=== PATIENT | male | born 1970 | race Caucasian/White ===

== ENCOUNTER 2020-08-20 14:45 | Emergency (ER) | payer OTHER, SELFPAY ==
--- NOTE | ~2020-08-20 | XR_ITS ---
XR finger 4th RT min 2V 08/20/2020 15:42 Indication: Right fourth finger swelling and pain Procedure: 3 views right fourth finger Comparison: 01/26/2008 Findings: There is a soft tissue amputation overlying the distal phalanx. There is a healed fifth met acarpal fracture. There is a nondisplaced tuft fracture of the distal phalanx. No soft tissue abnorma lity. No foreign bodies. Impression: 1: Nondisplaced tuft fracture fourth distal phalanx. Overlying soft tissue amputation.. Reviewed, dictated and finalized at location A. ION MANAGER Impression: 1: Nondisplaced tuft fracture fourth distal phalanx. Overlying soft tissue ampu tation..
[2020-08-20 14:48] VITALS: BP 150/102; PULSE 112; RESP 20; TEMP 35.8; O2SAT 100
--- NOTE | 2020-08-20 14:58 | ED.GENADULT ---
HPI - General Adult General Chief complaint: Burn/Smoke Inhalation Stated complaint: Right Hand Swelling Time Seen by Provider: 08/20/20 14:58 Source: patient Mode of arrival: ambulatory Limitations: no limitations History of Present Illness HPI narrative: Patient was putting up [employer] decorations approximately a week and a half ago when a bowl broke in his hand and he was shocked at the tip of his fourth right finger. He states that he did not lose consciousness he did not have any chest pain. Since that time he is continue to work. He is here today because the pain has worsened. He also states that there appeared to be blood under the nail and so he poked a hole in the nail and then tore the rest of the nail off. He states that there was probably some pus at that time and the tip of his finger has been sore ever since. Related Data Allergies Allergy/AdvReac Type Severity Reaction Status Date / Time Penicillins Allergy Unknown Unknown Verified 08/20/20 14:51 Review of Systems Review of Systems: All systems reviewed & are unremarkable except as noted in HPI and below [facility] Past Medical History Medical History (Updated 08/20/20 @ 16:06 by Angelita Gamez PA-C) Heart attack Surgical History Surgical History (Updated 08/20/20 @ 15:35 by Angelita Gamez PA-C) S/P internal cardiac defibrillator procedure Stented coronary artery Family History Family History Father Family history of coronary artery disease Social History Social History (Updated 08/20/20 @ 15:36 by Angelita Gamez PA-C) Smoking status: Current every day smoker Alcohol intake: former Substance use: never Living arrangements: with family Occupation/Education: occupation Additional occupation/education comments: [employer] Exam Const: General: no acute distress HENMT: Head: normal to inspection Eyes: Pupils: Equal, round and reactive pupils present Resp: Effort & Inspection: normal respiratory effort Auscultation: wheezes Cardio: Rate: regular rate Rhythm: regular rhythm Skin: General skin exam: normal color Extrem: General: other (both hands cool to touch) Right upper extremity: full ROM and normal capillary refill Other: right 4th finger tip slightly swollen, nail is jagged. tender to touch Psych: Appearance: disheveled Course Course Emergency Course: Xray shows a tuft fracture of 4th finger. will splint. Vital Signs Vital signs: Vital Signs Temperature 35.8 C L 08/20/20 14:48 Pulse Rate 112 H 08/20/20 14:48 Respiratory Rate 08/20/20 14:48 Blood Pressure 150/102 H 08/20/20 14:48 Pulse Oximetry 100 08/20/20 14:48 Temperature 35.8 C L 08/20/20 14:48 Pulse Rate 112 H 08/20/20 14:48 Respiratory Rate 08/20/20 14:48 Blood Pressure 150/102 H 08/20/20 14:48 Pulse Oximetry 100 08/20/20 14:48 Medical Decision Making Vital Signs Vital Signs: Vital Signs Temperature 35.8 C L 08/20/20 14:48 Pulse Rate 112 H 08/20/20 14:48 Respiratory Rate 08/20/20 14:48 Blood Pressure 150/102 H 08/20/20 14:48 Pulse Oximetry 100 08/20/20 14:48 Temperature 35.8 C L 08/20/20 14:48 Pulse Rate 112 H 08/20/20 14:48 Respiratory Rate 08/20/20 14:48 Blood Pressure 150/102 H 08/20/20 14:48 Pulse Oximetry 100 08/20/20 14:48 Discharge Plan Discharge Clinical Impression: Closed fracture of tuft of distal phalanx of finger Patient Disposition: Home, Self-Care Condition: Stable Instructions: Antibiotic Form, Finger Fracture (ED) Additional Instructions: You have fractured the very tip of your fourth finger on your right hand. It is not out of place. Wear your splint for comfort for the next few weeks. The pain may last for several months. I gave you a short course of pain medication after that continue to take Tylenol or ibuprofen as needed. Follow-up with your primary care physician
== END 2020-08-20 16:24 | disposition home or self-care (01) ==
PROVIDERS: Emergency Provider Emergency Medicine
DX: S62.664A Nondisplaced fracture of distal phalanx of right ring finger, initial encounter for closed fracture (principal); I25.2 Old myocardial infarction; Z95.5 Presence of coronary angioplasty implant and graft; Z95.0 Presence of cardiac pacemaker; F17.200 Nicotine dependence, unspecified, uncomplicated; W86.8XXA Exposure to other electric current, initial encounter
CPT/HCPCS: 29130; 73140; 99284

== ENCOUNTER 2024-11-10 10:48 | Outpatient (CLI) | payer MEDICARE, SELFPAY ==
--- NOTE | ~2024-11-10 | XR_ITS ---
Right foot Technique: AP and lateral views were obtained. Clinical History: Edema Findings: No acute fracture or dislocation is seen. Hallux valgus noted. Joint spaces are preserved w ithout erosive or degenerative change. Soft tissues are unremarkable. Impression: Hallux valgus. Reviewed, dictated and finalized at location . Impression: Hallux valgus.
--- NOTE | ~2024-11-10 | XR_ITS ---
Left foot Technique: AP and lateral views were obtained. Clinical History: Edema Findings: No acute fracture or dislocation is seen. Osseous alignment is anatomic. Joint spaces are p reserved without erosive or degenerative change. Soft tissues are unremarkable. Impression: Unremarkable left foot radiographs. Reviewed, dictated and finalized at [facility] [place]. Impression: Unremarkable left foot radiographs.
--- OUTSIDE RECORDS SUMMARY | 2024-11-10 12:37 | XMS_ITS ---
Author Organization [facility] Address [address] [place] [address] Care Team Providers Care Gas Blender Name Role Phone Loren Li Primary Care Provider Reggie Valerio Unavailable [phone] [facility], [facility] Unavailable U navailable REASON FOR VISIT new eval, last seen 06/2023 Social History Sex Assigned At : Social History Observation Description Sex Assigned At Male Encounters Encounter Location Date Provider Diagnosis [address] [address] 11/09/2024 Reggie Valerio Plan Of Treatment No Information Progress Notes * Kamran SCHEERRDOB: [birth year] (54 yo M)Acc No.[id number]:11/09/2024 UNLOCKED PROGRESS NOTE Patient: Kamran PEREZ Provider: Meggan Valerio :1970 A ge:54 Y S ex:Male Date:11/09/2024 Address:[address] [place], [place] [id number] Pcp:Loren Li Subjective: * Chief Complaints: * 1 . New eval, last seen 06/2023. * Medical History: Objective: * Vitals: Assessment: Plan: * Treatment: * * Electronic signature of Reggie Valerio MD, [id number] on 11/10/2024 at 12:37 PM CDT Sign off status: Pending * Provider: Meggan Valerio Date: 0 11/09/2024 Generated for Osmari violet/Emilie/eTransmitting on: 0 11/10/2024 12:37 PM CDT
--- OUTSIDE RECORDS SUMMARY | 2024-11-10 12:37 | XMS_ITS ---
[facility] Organization [facility] Address [address] [place] [address] Care Team Providers Care Chief Digital Officer Name Role Phone Loren Li Primary Care Provider Reggie Valerio Unavailable [phone] [facility], [facility] Unavailable U Yesi Ribeiro Unavailable [phone] REASON FOR VISIT call back Social History Sex Assigned At : Social History Observation Description Sex Assigned At Male Encounters Encounter Location Date Provider Diagnosis [place] [address] [facility] [place] [address] 11/03/2024 Yesi Dash Plan Of Treatment No Information Progress Notes * Kamran SCHERERDOB: [birth year] (54 yo M)Acc No.[id number]:11/03/2024 Patient: Kamran PEREZ :1970 A ge:54 Y S ex:Male Address:[address] [place] [address], [address] * true * Date: Generated for Printi ng/Faxing/eTransmitting on: 0 11/10/2024 12:37 PM CDT
--- OUTSIDE RECORDS SUMMARY | 2024-11-10 12:37 | XMS_ITS | Continuity of Care Document ---
Author Organization [facility] Address [address] [place] [address] [place] [address] Phone Care Team Providers Care Plant Engineer Name Role Phone Elias Otero MD Unavailable Unavailable Allergies, Adverse Reactions, Alerts Substance Reaction Status Criticality Penicillins Active No Information Medications Medication Instructions Dosage Effective Dates (start - stop) Status Comments Ativan 1 mg tablet take 1 tablet by oral route 2 times every day as needed 1 MG - Active PRN for anxi ety, avoid driving or operate machines trazodone 100 mg tablet take 1 tablet by oral route every bedtime after meals 100 MG - Active lithium carbonate 300 mg capsule take 2 capsule by oral route 2 times every day 600 MG - Active tramadol 50 mg tablet take 1 tablet by oral route every 6 hours as needed 50 MG - Active PRN for pain, avoid driving or operate machines Procedures Procedure Date PREV VISIT, NEW, AGE 40-64 Advance Directives Directive Yes / No Effective Date File Name No Information Encounters Encounter Description Practice Location Reason(s) For Visit Diagnoses Date Provider Providers Copied on Encounter [facility], [address] [facility] [place] [id number], [place] tel:[phone] [facility] No Information [facility]. [address] [facility] [place], [id number], [place]. tel:[phone] Referring Provider: Elias Otero, [address] [facility] [address], [place], [place], [id number]. tel:[phone] PREV VISIT, NEW, AGE 40-64 [facility], [address], [place], [place], [id number], [place] tel:[phone] [facility] PHysical (chief complaint) Encntr for general adult medical exam w/o abnormal findings Branden Griffin. [address], [place], [place], [id number], [place]. tel:[phone] Referring Provider: Elias Otero, [address], [place], [place], [id number]. tel:[phone] Family History Family Member Type Diagnosis Age At Onset Father Problem (finding) Coronary artery disease Mother Problem (finding) Osteoarthritis Brother Problem (finding) Alive and well Payers Payer name Insurance type Covered democrat ID Authoriza tion(s) No Information Social History Type Description Quantity Date Captured Comments Alcohol Use Details Unknown Caffeine Use Details Unknown Tobacco Use Status Smoking Status No Information Sex Male Chief Complaint And Reason For Visit No Information Plan Of Treatment Date Type Action Status No Information History Of Present Illness Encounter Date Complaint History Of Prese nt Illness PHysical Pt needs annual physical. Pt has chronic anxiety and depression and schizophrenia and bipolar. Pt was admited to [facility] 3 months ago and he was given some lithium, ativan and also trazodone. Pt unable to find a psychiatrist now. Pt needs his medication refilled. Pt states that he is doing ok with curent meds. Pt is seeing counselor at [facility] and also he has appointment with counselor at [facility] next week. Pt also has been having diffuse arthritis pain around hand and low back Pt denies any sciatica. Pt denies any loss of bowel or bladder control. Pt denies any suidial or homicidal thought. pt denies any crying spells. Pt denies hearing voices now Instructions Date Instruction Additional Infor mation Prescribed Activity and Exercise Education Related to Dietary Surveillance and Counseling Prescribed Diet Educ ation/Lifestyle Education Regarding Diet Related to Dietary Surveillance and Counseling Assessments Type Assessment Date No Information
--- OUTSIDE RECORDS SUMMARY | 2024-11-10 12:37 | XMS_ITS | CONTINUITY OF CARE DOCUMENT ---
Author Name cesilia, cesilia Address Unknown Organization [facility] Address [address] [address] [address] [facility] [address] [place] [address] Phone [phone] Care Team Providers Care Turf Keeper Name Role Phone Amber CRAIG, José Luis Unavailable [phone] Kilzer WASTEWATER ENGINEER-C, Nidia Unavailable Kilzer WASTEWATER ENGINEER-C, Nidia Unavailable PROBLEMS Condition Status Date Provider Notes Abnormal cardiovascular stre ss test active José Luis Clark MD Colon cancer, stage 1 active José Luis Clark MD HTN essential active José Luis Clark MD Preop cardiovasc. examination active Alonso Canada MD (Rule out) Sleep apnea completed 6 - José Luis Clark MD Dyslipidemia active Rex Chen MD Syncope active Rex Chen MD Tobacco abuse active Vaughn Fox MD Obesity active Vaughn Fox MD Bipolar disorder active Vaughn Fox MD CAD - S/P Multivessel Stents - Mid, distal, RCA, PDA, OM - EF of 50% 07/09 active Vaughn Fox MD [employer] Reveal/LinQ active Rex Chen MD ENCOUNTERS Date Type Provider Location Encounter Diag nosis - In-person encounter Office Visit José Luis Clark MD [facility] Abnormal cardiovascular stress test - In-person encounter Office Visit Parvez Smith MD [facility] Office - In-person encounter Office Visit José Luis Clark MD [facility] (Rule out) Sleep apneaHTN essentialColon cancer, stage 1 - In-person encounter Office Visit Cruz Canada MD [facility] Preop cardiovasc. examination - In-person encounter Office Visit Rex Chen MD [facility] SyncopeDyslipidemia - In-person encounter Office Visit Rex Chen MD [facility] [employer] Reveal/LinQ - In-person encounter Office Visit Vaughn Fox MD [facility] CAD - S/P Multivessel Stents - Mid, distal, RCA, PDA, OM - EF of 50% 07/09Bipolar disorderObesityTobacco abuse VITAL SIGNS Date Observation Value Provider Body Mass Index (Ratio) 31.62 kg/m2 Ana Laura Clark MD blood pressure, cuff size regular Ja rret blood pressure, diastolic 98 mm[Hg] Ja rret blood pressure, systolic 141 mm[Hg] [facility] pulse rate 84 /min Crispin respiratory rate E&M 12 /min Crispin oxygen saturation, oximetry 98 % Crispin weight E&M 253 [lb_av] Crispin y height E&M 75 [in_i] Crispin y Body Mass Index (Ratio) 32.12 kg/m2 Ana Laura Clark MD blood pressure, cuff size regular Ke rri Grueneeldamauri blood pressure, diastolic 104 mm[Hg] Ke rri Gruenenfeldamauri blood pressure, systolic 162 mm[Hg] Margarette Garsia oxygen saturation, oximetry 97 % Ilana Ady respiratory rate E&M 14 /min Ilana G annnfcyndi pulse rate 73 /min Ilana Astonnemieshae lder weight E&M 257 [lb_av] Ilana Gruenenfe lder height E&M 75 [in_i] Ilana Tracye er Body Mass Index (Ratio) 28.74 kg/m2 Maurice Nolan blood pressure, cuff size regular Cr eloisa David blood pressure, diastolic 70 mm[Hg] Cr eloisa David blood pressure, systolic 120 mm[Hg] Cry cinthya Hernandez oxygen saturation, oximetry 97 % Maren Hernandez respiratory rate E&M 17 /min Maren Hernandez pulse rate 69 /min Maren echeverria weight E&M 230 [lb_av] Maren echeverria height E&M 75 [in_i] Maren echeverria Body Mass Index (Ratio) 28.74 kg/m2 Mauricio Chou blood pressure, cuff size regular Ke rri Ady blood pressure, diastolic 84 mm[Hg] Ke rri Astonneopal blood pressure, systolic 135 mm[Hg] Margarette Garsia oxygen saturation, oximetry 97 % Ilana Ady respiratory rate E&M 16 /min Ilana G reagan pulse rate 76 /min Ilana Gruenemieshae er weight E&M 230 [lb_av] Ilana Astonnemieshae lder height E&M 75 [in_i] Ilana Gruenenfe lder blood pressure, diastolic 81 mm[Hg] Ke rri Alexueneopal blood pressure, systolic 128 mm[Hg] Margarette ri Ady pulse rate 106 /min Ilana Astonaaliyahe lder oxygen saturation, oximetry 97 % Ilana Ady respiratory rate E&M 16 /min Ilana Mandel sulemanmiccyndi Body Mass Index (Ratio) 33.87 kg/m2 Pearl Johnsonluismieshacyndi weight E&M 271 [lb_av] Ilana Clancyaaliyahlilly ericamauir blood pressure, diastolic 95 mm[Hg] Jomar Naylor blood pressure, systolic 139 mm[Hg] Carlota Naylor pulse rate 79 /min Michell Irwin nazaningregorio oxygen saturation, oximetry 98 % Michell Naylor respiratory rate E&M 16 /min Cali Naylor Body Mass Index (Ratio) 34.07 kg/m2 Mita Naylor weight E&M 272.6 [lb_av] Michell alexandergregorio height E&M 75 [in_i] Michell Irwin nazaningregorio ALLERGIES Allergy Name Onset Date Reaction Criticality Status PENICILLIN Low Criticality active RESULTS Date Observation Value Provider Reference Range Interpretation Location very low density lipoproteins 33.0 mg/dL [facility] 5.0 - 40.0 LDL/HDL (low-density lipoprotein/high- density lipoprotein) ratio 3.3 RATIO [facility] - lipoprotein, beta, serum, point, quantitative, calculated 129.0 (?) [facility] 0.0 - 100.0 High HDL cholesterol, serum 39.0 mg/dL [facility] 35.0 - 55.0 cholesterol, serum 201.0 mg/dL [facility] 0.0 - 200.0 High triglyceride, serum, fasting 165.0 mg/dL [facility] 0.0 - 150.0 High hemoglobin A1C, blood, as % of total hemoglobin 5.4 % [facility] 4.0 - 5.6 HISTORY OF MEDICATION USE Medication Status Instructions Dates Provider Indications Com ments amlodipine 5 mg tablet active Take 1 tablet by mouth once a day José Luis Clark MD metoprolol succinate 50 mg tablet extended release 24 hr active Take 1 tablet by mouth once a day José Luis Clark MD hydrocodone-carisa taminophen 10-325 mg tablet active Ilana Garsia Depakote 250 mg tablet,delayed release (DR/EC) active take eight tablet by mouth twice daily Ilana Garsia Nicoderm CQ 14 mg/24 hr patch 24 hour completed Apply 1 patch once a day - Ilana Garsia atorvastatin 80 mg tablet active Take 1 tablet once a day Ilana Garsia increased d/t LDL ALPRAZOLAM TABLET completed take one pill twice a day - Maren Hernandez TRAMADOL HCL 50 MG ORAL TABLET completed one pill twice a day - Maren Hernandez Ventolin HFA 90 mcg/actuation HFA aerosol inhaler active as needed Rex Chen MD Tylenol 325 mg tablet active by mouth as needed Rex Chen MD Nitrostat 0.4 mg tablet, sublingual active One tab. under tongue as needed. May repeat twice in 10 minutes. Michell Naylor aspirin 81 mg tablet,delayed release (DR/EC) active 1 tablet by mouth once a day Rex Chen MD PLAVIX 75 MG ORAL TABLET completed ONE TAB. DAILY - Maren Hernandez TRAZODONE HCL TABLET completed - Michell Naylor LITHIUM CARBONATE CAPSULE completed twice daily - Maren Hernandez TRAMADOL HCL 50 MG ORAL TABLET completed one tab every 8hrs prn incision site pain - Michell Naylor SOCIAL HISTORY Date Observation Value Provider social history E&M S moking History: P atient currently smokes every day. P atient has been counseled to quit. José Luis Clark MD smoking/tobacco cess ation, patient education and counseling yes José Luis Clark MD number of years as a smoker 30 a José Luis Clark MD smoking history, tot al pack/day 08/29 José Luis Clark MD cigarette use yes José Luis Clark MD smoking status Current every day smoker Ministerio Clark MD social history reviewed E&M revi ewed - no changes required José Luis Clark MD social history E&M S moking History: P atient currently smokes every day. P atient has been counseled to quit. José Luis Clark MD smoking/tobacco cess ation, patient education and counseling yes José Luis Clark MD number of years as a smoker 30 a José Luis Clark MD smoking history, tot al pack/day 08/29 José Luis Clark MD cigarette use yes José Luis Clark MD smoking status Current every day smoker Ministerio Clark MD social history reviewed E&M revi ewed - no changes required José Luis Clark MD social history E&M S moking History: P atient currently smokes every day. Cruz Canada MD social history reviewed E&M revi ewed - no changes required Cruz Canada MD number of grandchildren Cruz Canada MD cigarette use yes Maren Hernandez ms smoking status Current every day smoker Ranjana Hernandez social history reviewed E&M revi ewed - no changes required Rex Chen MD social history E&M Smoking Histo ry: P atient currently smokes every day. P atient has been counseled to quit. Rex Chen MD smoking/tobacco cess ation, patient education and counseling yes Ilana aGrsia alcohol use no Ilana duke number of years as a smoker 30 a Ilana Garsia smoking history, tot al pack/day 08/29 Rex Chen MD cigarette use yes Ilanamckenzie hanna smoking status Current every day smoker Chilo bernabe Ady smoking/tobacco cess ation, patient education and counseling yes Stanislaw Chou social history E&M Smoking Histo ry: P atient currently smokes every day. P atient has been counseled to quit. Stanislaw Chou social history reviewed E&M revi ewed - no changes required Stanislaw Chou alcohol use no Ilana Rubio leilani number of years as a smoker 30 a Ilana Ady smoking history, tot al pack/day 1/2 Ilana Johnsonmartín cigarette use yes Ilana Johnsonluismiesha cyndi smoking status Current every day smoker Chilo bernabe Ady social history E&M S moking History: P atient currently smokes every day. P atient has been counseled to quit. Vaughn Fox MD smoking/tobacco cess ation, patient education and counseling yes Vaughn Fox MD social history reviewed E&M revi ewed - no changes required Vaughn Fox MD number of years as a smoker 35 a Michell Naylor smoking history, tot al pack/day 0.5 Michell Naylor cigarette use yes Michell rubalcava smoking status Current every day smoker Noel Joycelyn Naylor FUNCTIONAL STATUS Date Observation Value Provider HRA, CV Assess/Plan, Angina (inactive) Management Plan continue current therapy José Luis Clark MD HRA, CV Assess/Plan, Angina (inactive) Management Plan continue current therapy José Luis Clark MD HRA, CV Assess/Plan, Angina (inactive) Management Plan continue current therapy Rex Chen MD FAMILY HISTORY Family Member Condition Mother Negative FH of Coron sandhya Artery Disease Father Family History of Co ronary Artery Disease: INSURANCE PROVIDERS Payer name Policy type / Coverage type [place] party ID AARP MEDICARE ADVANTAGE HMO-POS HMO [id number] [facility] Medicaid 0 [id number] ADVANCE DIRECTIVES Name Date DISCUSSED - NO DECISION MADE TREATMENT PLAN Date Name Performer [id number],SJosé Luis ra, [place] [id number],S, H is updated medication list for this problem includes: Atorvastatin 80 Mg Tablet (Atorvastatin) ..... Take 1 tablet once a day José Luis Clark MD [id number],B, B P today: 141/98 P rior BP: 162/104 (03/31/2023) Labs Reviewed: C hol: 201.0 (11/29/2016) HDL: 39.0 (11/29/2016) T.0 (11/29/2016) His updated medication list for this problem includes: Amlodipine 5 Mg Tablet (Amlodipine) ..... Take 1 tablet by mouth once a day Metoprolol Succinate 50 Mg Tablet Extended Release 24 Hr (Metoprolol succinate) ..... Take 1 tablet by mouth once a day Aspirin 81 Mg Tablet,delayed Release (dr/ec) (Aspirin) ..... 1 tablet by mouth once a day José Luis Clark MD [id number],José Luis Echeverria ra, [place] [id number],W, H is updated medication list for this problem includes: Amlodipine 5 Mg Tablet (Amlodipine) ..... Take 1 tablet by mouth once a day Metoprolol Succinate 50 Mg Tablet Extended Release 24 Hr (Metoprolol succinate) ..... Take 1 tablet by mouth once a day Nitrostat 0.4 Mg Tablet, Sublingual (Nitroglycerin) ..... One tab. under tongue as needed. may repeat twice in 10 minutes. Aspirin 81 Mg Tablet,delayed Release (dr/ec) (Aspirin) ..... 1 tablet by mouth once a day José Luis Clark MD [id number],WJosé Luis ra, MD [id number],S, José Luis Tracy ra, MD [id number],S, José Luis Tracy ra, [place] [id number],W, José Luis Tracy ra, MD [id number],S, H is updated medication list for this problem includes: Atorvastatin 80 Mg Tablet (Atorvastatin) ..... Take 1 tablet once a day José Luis Clark MD [id number],B, José Luis Tracy ra, MD [id number],W, B P today: 162/104 P rior BP: 120/70 (04/14/2019) His updated medication list for this problem includes: Amlodipine 5 Mg Tablet (Amlodipine) ..... Take 1 tablet by mouth once a day Metoprolol Succinate 50 Mg Tablet Extended Release 24 Hr (Metoprolol succinate) ..... Take 1 tablet by mouth once a day Aspirin 81 Mg Tablet,delayed Release (dr/ec) (Aspirin) ..... 1 tablet by mouth once a day José Luis Clark MD [id number],S, H is updated medication list for this problem includes: Amlodipine 5 Mg Tablet (Amlodipine) ..... Take 1 tablet by mouth once a day Metoprolol Succinate 50 Mg Tablet Extended Release 24 Hr (Metoprolol succinate) ..... Take 1 tablet by mouth once a day Nitrostat 0.4 Mg Tablet, Sublingual (Nitroglycerin) ..... One tab. under tongue as needed. may repeat twice in 10 minutes. Aspirin 81 Mg Tablet,delayed Release (dr/ec) (Aspirin) ..... 1 tablet by mouth once a day José Luis Clark MD Cardiology José Luis Shi Cardiology: H is updated medication list for this problem includes: Atorvastatin 80 Mg Tablet (Atorvastatin) ..... Take 1 tablet once a day José Luis Clark MD Cardiology: B P today: 141/98 P rior BP: 162/104 (03/31/2023) Labs Reviewed: C hol: 201.0 (11/29/2016) HDL: 39.0 (11/29/2016) T.0 (11/29/2016) His updated medication list for this problem includes: Amlodipine 5 Mg Tablet (Amlodipine) ..... Take 1 tablet by mouth once a day Metoprolol Succinate 50 Mg Tablet Extended Release 24 Hr (Metoprolol succinate) ..... Take 1 tablet by mouth once a day Aspirin 81 Mg Tablet,delayed Release (dr/ec) (Aspirin) ..... 1 tablet by mouth once a day José Luis Clark MD Cardiology José Luis Shi Cardiology: H is updated medication list for this problem includes: Amlodipine 5 Mg Tablet (Amlodipine) ..... Take 1 tablet by mouth once a day Metoprolol Succinate 50 Mg Tablet Extended Release 24 Hr (Metoprolol succinate) ..... Take 1 tablet by mouth once a day Nitrostat 0.4 Mg Tablet, Sublingual (Nitroglycerin) ..... One tab. under tongue as needed. may repeat twice in 10 minutes. Aspirin 81 Mg Tablet,delayed Release (dr/ec) (Aspirin) ..... 1 tablet by mouth once a day José Luis Clark MD Cardiology José Luis Shi Cardiology José Luis Shi Cardiology José Luis Shi Cardiology José Luis Shi Cardiology: H is updated medication list for this problem includes: Atorvastatin 80 Mg Tablet (Atorvastatin) ..... Take 1 tablet once a day José Luis Clark MD Cardiology José Luis Shi Cardiology: B P today: 162/104 P rior BP: 120/70 (04/14/2019) His updated medication list for this problem includes: Amlodipine 5 Mg Tablet (Amlodipine) ..... Take 1 tablet by mouth once a day Metoprolol Succinate 50 Mg Tablet Extended Release 24 Hr (Metoprolol succinate) ..... Take 1 tablet by mouth once a day Aspirin 81 Mg Tablet,delayed Release (dr/ec) (Aspirin) ..... 1 tablet by mouth once a day José Luis Clark MD Cardiology: H is updated medication list for this problem includes: Amlodipine 5 Mg Tablet (Amlodipine) ..... Take 1 tablet by mouth once a day Metoprolol Succinate 50 Mg Tablet Extended Release 24 Hr (Metoprolol succinate) ..... Take 1 tablet by mouth once a day Nitrostat 0.4 Mg Tablet, Sublingual (Nitroglycerin) ..... One tab. under tongue as needed. may repeat twice in 10 minutes. Aspirin 81 Mg Tablet,delayed Release (dr/ec) (Aspirin) ..... 1 tablet by mouth once a day José Luis Clark MD Cardiology:Planning on getting foot surgery B/L at [facility], will need to get preop clearance. Needs PFTs and noninvasive testing. Cruz Canada MD Cardiology: H is updated medication list for this problem includes: Atorvastatin Calcium 80 Mg Oral Tablet (Atorvastatin calcium) ..... Take 1 tab daily Cruz Canada MD Cardiology:Needs nuc lear stress test, has multi vessel stenting done with no recent ischemic workup. Cruz Canada MD Cardiology:Cessation adivsed. Sa fernanda Canada MD Cardiology Follow up :Orders: S lee Study Home (CPT-25962) Rex Chen MD Cardiology Follow up :Will start Lipitor 20mg daily and check a lipid panel and HgA1c. Rex Chen MD Cardiology Follow up :Benefits of weight loss and exercise reinforced. Rex Chen MD Cardiology Follow up :STRONGLY ENCOURAGED TO STOP SMOKING; SMOKING CESSATION TECHNIQUES DISCUSSED. Rex Chen MD Cardiology Follow up :He has had some dizziness but no syncope. Orders: S NOMED-CT: [id number] Current Medications Documented ([id number]) E KG (CPT-02456) C arotid Duplex Bilateral (CPT-80379) Rex Chen MD Cardiology Follow up :His updated medication list for this problem includes: Nitrostat 0.4 Mg Subl (Nitroglycerin) ..... One tab. under tongue as needed. may repeat twice in 10 minutes. Aspirin Adult Low Dose 81 Mg Oral Tbec (Aspirin) ..... One tab by mouth daily Plavix 75 Mg Tabs (Clopidogrel bisulfate) ..... One tab. daily Rex Chen MD Cardiology, Follow u p :Pt complains of a lot of pain at Reveal site. WIll schedule Reveal removal. The pt would like to try to implant the Reveal in a different location due to the pain. Rex Chen MD Cardiology:Strongly advised to s top smoking. Vaughn Fox MD Cardiology:[place]. Follows p sychiatry. Vaughn Fox MD Cardiology:Chest tod n free. Continues on aspirin and Plavix for at least a year and Plavix indefinitely. Take nitroglycerin as needed. Vaughn Fox MD Date Name PROTHROMBIN TIME WIT H INR LIPID PANEL CBC (INCLUDES DIFF/P LT) BASIC METABOLIC PANE L W/EGFR LIPID PANEL Stress Exercise Card iolite Complete Echo Stress Exercise Card iolite Carotid Duplex Bilat eral Stress Exercise Card iolite Complete Echo 6 minute walk test Ambulatory Oximetry DLCO - 02580 FRC - 71009 FVC - 09325 Sleep Study Home Complete Echo Carotid Duplex Bilat eral HEMOGLOBIN A1c LIPID PANEL Device Removal - GC HISTORY OF PROCEDURES Procedure Date Procedure Name Provider Procedure Notes S tatus EKG José Luis Clark MD completed EKG Cruz Canada MD completed Loop Recorder Interrogation, Remote Rex Chen MD INTERROGATION EVALUATION REMOTE </30 D ILR SYS completed ICM Interrogation, Remote (Tech) Rex Chen MD INTERROGATION EVAL REMOTE </30 D TECH REVIEW completed Loop Recorder Interrogation, Remote Rex Chen MD INTERROGATION EVALUATION REMOTE </30 D ILR SYS completed ICM Interrogation, Remote (Tech) Rex Chen MD INTERROGATION EVAL REMOTE </30 D TECH REVIEW completed Loop Recorder Interrogation, Remote Rex Chen MD INTERROGATION EVALUATION REMOTE </30 D ILR SYS completed ICM Interrogation, Remote (Tech) Rex Chen MD INTERROGATION EVAL REMOTE </30 D TECH REVIEW completed Loop Recorder Interrogation, Remote Rex Chen MD INTERROGATION EVALUATION REMOTE </30 D ILR SYS completed ICM Interrogation, Remote (Tech) Rex Chen MD INTERROGATION EVAL REMOTE </30 D TECH REVIEW completed Loop Recorder Interrogation, Remote Rex Chen MD INTERROGATION EVALUATION REMOTE </30 D ILR SYS completed ICM Interrogation, Remote (Tech) Rex Chen MD INTERROGATION EVAL REMOTE </30 D TECH REVIEW completed Loop Recorder Interrogation, Remote Rex Chen MD INTERROGATION EVALUATION REMOTE </30 D ILR SYS completed ICM Interrogation, Remote (Tech) Rex Chen MD INTERROGATION EVAL REMOTE </30 D TECH REVIEW completed Loop Recorder Interrogation, Remote Rex Chen MD INTERROGATION EVALUATION REMOTE </30 D ILR SYS completed ICM Interrogation, Remote (Tech) Rex Chen MD INTERROGATION EVAL REMOTE </30 D TECH REVIEW completed Loop Recorder Interrogation, Remote Rex Chen MD INTERROGATION EVALUATION REMOTE </30 D ILR SYS completed ICM Interrogation, Remote (Tech) Rex Chen MD INTERROGATION EVAL REMOTE </30 D TECH REVIEW completed SNOMED-CT: [id number] Smoking Cessation Counseling Rex Chen MD completed EKG Rex Chen MD completed SNOMED-CT: [id number] Current Medications Documented Rex Chen MD completed Loop Recorder Interrogation, Remote Alex Dupree MD INTERROGATION EVALUATION REMOTE </30 D ILR SYS completed ICM Interrogation, Remote (Tech) Alex Dupree MD INTERROGATION EVAL REMOTE </30 D TECH REVIEW completed Loop Recorder Interrogation, Remote Cruz Canada MD INTERROGATION EVALUATION REMOTE </30 D ILR SYS completed ICM Interrogation, Remote (Tech) Cruz Canada MD INTERROGATION EVAL REMOTE </30 D TECH REVIEW completed Loop Recorder Interrogation, Remote Cruz Canada MD INTERROGATION EVALUATION REMOTE </30 D ILR SYS completed ICM Interrogation, Remote (Tech) Cruz Canada MD INTERROGATION EVAL REMOTE </30 D TECH REVIEW completed Loop Recorder Interrogation, Remote Cruz Canada MD INTERROGATION EVALUATION REMOTE </30 D ILR SYS completed ICM Interrogation, Remote (Tech) Cruz Canada MD INTERROGATION EVAL REMOTE </30 D TECH REVIEW completed Loop Recorder Interrogation, Remote Cruz Canada MD INTERROGATION EVALUATION REMOTE </30 D ILR SYS completed ICM Interrogation, Remote (Tech) Cruz Canada MD INTERROGATION EVAL REMOTE </30 D TECH REVIEW completed Loop Recorder Interrogation, Remote Cruz Canada MD INTERROGATION EVALUATION REMOTE </30 D ILR SYS completed ICM Interrogation, Remote (Tech) Cruz Canada MD INTERROGATION EVAL REMOTE </30 D TECH REVIEW completed SNOMED-CT: [id number] Smoking Cessation Counseling Rex Chen MD completed SNOMED-CT: [id number] Current Medications Documented Rex Chen MD completed Loop Recorder Interrogation, Remote Vaughn Fox MD INTERROGATION EVALUATION REMOTE </30 D ILR SYS completed ICM Interrogation, Remote (Tech) Vaughn oFx MD INTERROGATION EVAL REMOTE </30 D TECH REVIEW completed SNOMED-CT: [id number] Smoking Cessation Counseling Vaughn Fox MD completed SNOMED-CT: [id number] Physical Exam, Performed: Pulse Exam of Foot Vaughn Fox MD completed EKG Vaughn Fox MD completed SNOMED-CT: [id number] Current Medications Documented Vaughn Fox MD completed
--- OUTSIDE RECORDS SUMMARY | 2024-11-10 12:38 | XMS_ITS | Clinical Summary ---
Author Organization [facility] Address [address] [place] [address] Care Team Providers Care Ticket Sales Agent Name Role Phone Nidia Ledesma MARTY Primary Care Provider [phone] Allergies Active Allergy Reactions Criticality Noted Date Comments Penicillins Rash Low 06/18/2012 Medications aspirin EC 81 MG tabletIndications: Coronary artery disease involving cachil dehe coronary artery of cachil dehe heart, unspecified whether angina present Take 1 tablet (81 mg total) by mouth daily. 90 tablet 3 08/13/[address] sprinkle (DEPAKOTE SPRINKLE) 125 MG capsuleIndications :Other schizophrenia ([facility]/HCC [facility]) TAKE 4 CAPSULES IN THE MORNING AND 8 CAPSULES AT BEDTIME 360 capsule 06/24/20 22 Active Additional Information Patient taking differently: 10 capsules in am and 9 capsule in pm, Reported on 12/31/2023 polyethylene glycol (GLYCOLAX) 17 GM/SCOOP powderIndications: Other constipation Take 17 g by mouth 2 (two) times daily as needed. one scoop dissolved in 8 ounces of fluid. Goal is to have 1 soft bowel movement without straining at least every other day. 238 g 02/06/20 23 Active Additional Information Patient not taking.Reported on 12/31/2023 Na sulfate-K sulfate-Mg sulfate (SUPREP BOWEL PREP KIT) 17.5-3.13-1.6 GM/177ML SolutionIndication s:Other constipation,Famil y history of colonic polyps,Family history of colon cancer in mother,Positive colorectal cancer screening using Cologuard test Take 177 mLs by mouth every 12 (twelve) hours. Take as directed by instruction sheet. 354 mL 03/20/20 23 Active Additional Information Patient not taking.Reported on 12/31/2023 HYDROcodone-acetam inophen (NORCO) 10-325 MG tabletIndications: Chronic Pain Take 1-2 tablets by mouth every 12 (twelve) hours as needed for Pain. Indications: Chronic Pain 120 tablet 07/25/20 23 Active ammonium lactate (LAC-HYDRIN) 12 % lotionIndications: Bilateral plantar wart Apply to affected areas of feet daily or as directed 396 g 12/09/19 24 Active atorvastatin (LIPITOR) 80 MG tabletIndications: Mixed hyperlipidemia Take 1 tablet (80 mg total) by mouth nightly at bedtime. 90 tablet 1 12/09/19 24 Active albuterol sulfate HFA 108 (90 Base) MCG/ACT inhalerIndications :Chronic obstructive pulmonary disease, unspecified COPD type (CMS/HCC HHS/HCC) Inhale 2 puffs into the lungs every 4 (four) hours as needed. FOR WHEEZING 18 g 12/09/19 24 Active pregabalin (LYRICA) 150 MG capsuleIndications :Foot pain, bilateral,Neuropat hy Take 1 capsule (150 mg total) by mouth 2 (two) times daily. 60 capsule 2 12/31/19 24 Active Active Problems Problem Noted Date Diagnosed Date Family history of colonic polyps 06/05/2023 Overview (06/05/2023): Added automatically from request for surgery [id number] Family history of colon cancer in mother 023 Overview (03/21/2023): Added automatically from request for surgery [id number] Positive colorectal cancer screening using Colog uard test 02/05/2023 Acquired hallux valgus 04/11/2022 Asthma without status asthmaticus ([facility]/HCC) 03/25 Chronic pain 04/11/2022 Chronic nausea 03/13/2022 Bilateral hand pain 03/13/2022 Closed nondisplaced fracture of base of first metacarpal bone of right hand with routine healing, unspecified fracture morphology, subsequent encounter 11/12/2021 Back muscle spasm 05/13/2021 Vitamin D deficiency 05/13/2021 Overweight with body mass in dex (BMI) of 27 to 27.9 in adult 03/14/2020 Coronary artery disease invo lving cachil dehe coronary artery of cachil dehe heart 03/14/2020 Chronic bilateral low back pain without sciatica 12/09/2019 Blood in stool 07/19/2019 Colitis 07/19/2019 Drug-induced constipation 05/17/2019 Fatigue, unspecified type 05/17/2019 Chronic obstructive pulmonar y disease, unspecified COPD type ([facility]) 02/21/2019 Right elbow pain 02/21/2019 Bilateral plantar wart 12/22/2018 Pain of right thumb 10/11/2018 Hammer toe 09/17/2018 Mixed hyperlipidemia 09/07/2018 Other schizophrenia ([facility]) 09/07/2018 Anxiety disorder 09/07/2018 Moderate episode of recurrent major depressive d isorder 09/07/2018 Plantar warts 09/07/2018 Osteoarthritis of multiple j oints, unspecified osteoarthritis type 09/07/2018 S/P coronary artery stent placement 09/07/2018 History of drug use 09/07/2018 History of alcohol abuse 09/07/2018 Foot pain, bilateral 09/01/2018 Presence of stent in artery 04/09/2017 Episodic mood disorder 07/05/2015 Presence of other cardiac implants and grafts Resolved Problems Problem Noted Date Diagnosed Date Resolved Date Opioid dependence, uncomplic ated ([facility]) 09/02/2022 12/31/2023 Sprain of cruciate ligament of knee 10/30/2020 11/12/2021 Chronic constipation 07/19/2019 021 Generalized abdominal pain 07/19/2019 0 02/06/2021 Needs flu shot 07/19/2019 05/05/2020 Recurrent major depressive d isorder, in remission 05/17/2019 11/12/2021 Colon cancer screening 02/21/201911/06 Examination, follow-up for injury 02/21/2019 05/05/2020 Tobacco dependence syndrome 07/05/2015 11/12/2021 Chest pain 11/01/2013 11/12/2021 Immunizations Name Administration Dates Next Due Fluzone 6 Months+ (5.0 mL Multi Dose Vial) 07/19 Fluzone 6 Months+ Quad (0.5 mL Prefilled Syringe) 07/29/2022,08/13/2021,06/28/2020 Fluzone Adult - >Age 3 (Prefilled Syringe) 07/02 Influenza (Generic) 07/02/2018 Influenza Adult (Generic) 07/15/2023,07/19/2019, 07/02/2018 PFIZER COVID-19 (ORIGINAL FO RMULATION, PURPLE CAP) mRNA, LNP-S, PF, 30 MCG/0.3 ML DOSE 04/02/2021 Pneumococcal (Pneumovax 23) 08/13/2021 Tdap (Boostrix) 09/01/2016 Tdap (Generic) 09/01/2016 Family History Medical History Relation Comments Heart Child Heart Father Stroke Father Colon Cancer Maternal Aunt 1 Colon Cancer Maternal Aunt 2 Colon Cancer Maternal Uncle Alzheimers Mother Cancer Mother Colon Cancer Mother Breast Cancer Sister Relation Status Comments Child Father Alive Maternal Aunt 1 Maternal Aunt 2 Maternal Uncle Mother Sister Social History Tobacco Use Types Packs/Day Years Used Date Smoking Tobacco: Some Days Cigarettes 0.5 40 Smokeless Tobacco: Never Tobacco Cessation:Ready to Q uit: No; Counseling Given: Yes Comments:provider to drug and alcohol counselor Alcohol Use Standard Drinks/Week Comments No 0 (1 standard drink = 0.6 oz pur e alcohol) 8 AUDIT-C Answer Date Recorded Frequency of Alcohol Consumption Never 09/01/2018 Average Number of Drinks Not on file 019 Frequency of Binge Drinking Not on file 03/2019 PHQ-2 Answer Date Recorded Patient Health Questionnaire-2 Score 1 09/02/2022 Sex and Gender Information Value Date Recorded Sex Assigned at Not on file Legal Sex Male 2:50 PM [employer] Gender Identity Not on file Sexual Orientation Not on file Last Filed Vital Signs Vital Sign Reading Time Taken Comments Blood Pressure 137/92 01/20/2024 3:46 PM CDT Pulse 75 01/20/2024 3:26 PM CDT Temperature 36.8 C (98.2 F) 12/31/2023 9:42 AM CDT Respiratory Rate 18 12/31/2023 9:42 AM CDT Oxygen Saturation 99% 01/20/2024 3:26 PM CDT Inhaled Oxygen Concentration - - Weight 105.7 kg (233 lb) 01/20/2024 3:26 PM CDT Height 190.5 cm (6' 3 ) 01/20/2024 3:26 PM CDT Body Mass Index 29.12 01/20/2024 3:26 PM CDT Plan of Treatment Health Maintenance Due Date Last Done Comments Annual Physical 02/11/1972 PHQ-2 ([facility] [place]) 1981 Hepatitis C 1987 Hepatitis B Vaccines (1 of 3 - 19+ 3-dose series) 02/11/1988 Lung Cancer Screening 2019 Zoster Vaccines (1 of 2) 2019 Pneumococcal Vaccine: Pediatrics (0 to 5 Years) and At-Risk Patients (6 to 64 Years) (2 of 2 - PCV) 08/13/2022 08/13/2021 COVID-19 Vaccine (2 - season) 2024 04/02/2021 Influenza Adult (#1) 2024 07/15/2023, 07/29/2022, 08/13/2021, Additional history exists ASCVD LDL 06/23/2024 06/23/2023, 02/22, 03/26/2019 PHQ-2 ([facility]) 08/25/2024 DTaP, Tdap and Td Vaccines (3 - Td or Tdap) 09/01/2026 09/01/2016, 09/01/2016 Colorectal Cancer Screening Colonoscopy (10 Years) 06/18/2033 06/18/2023 Colorectal Cancer Screening FIT-DNA (3 Years) Discontinued 12/26/2022, 12/26/2022 Meningococcal B Vaccine Aged Out No l onger eligible based on patient's age to complete this topic Meningococcal Vaccine Aged Out No surinder reginaldo eligible based on patient's age to complete this topic RSV Immunizations Under 20 Months Aged Out No longer eligible based on patient's age to complete this topic Procedures Procedure Name Priority Date/Time Associated Diagnosis Comments LIPID PANEL Routine 06/23/2023 1:37 PM CDT Mixed hyperlipidemia Vitamin D deficiency Generalized anxiety disorder Coronary artery disease involving cachil dehe coronary artery of cachil dehe heart, unspecified whether angina present COLOGUARD (EXACT SCIENCE) Routine 12/26/2022 9:06 PM CDT Screening for colon cancer from Last 3 Months or Most Recently Relevant to Health Maintenance Results * (ABNORMAL) LIPID PANEL (06/23/2023 1:37 PM CDT) CHOLESTEROL 191 <200 MG/DL 06/24/2023 10:22 AM CDT [facility] TRIGLYCERIDES 77 <150 MG/DL 06/24/2023 10:22 AM CDT [facility] HDL 46 >40 MG/DL 06/24/2023 10:22 AM CDT [facility] LDL-C 130(H) <100 MG/DL 06/24/2023 10:22 AM CDT [facility] VLDL CALCULATION 15 5 - 28 MG/DL 06/24/2023 10:22 AM CDT [facility] CHOL/HDL RATIO 4.2(H) 0.0 - 4.0 06/24/2023 10:22 AM CDT [facility] LDL/HDL 2.8(H) 0.41 - 2.13 06/24/2023 10:22 AM CDT [facility] NON HDL CHOLESTEROL 145(H) <140 MG/DL 06/24/2023 10:22 AM CDT [facility] 06/23/2023 1:37 PM CDT us Nidia Callie [facility] Final Result [facility] [address] [place] [address], * (ABNORMAL) COLOGUARD ([employer] SCIENCE) (12/26/2022 9:06 PM CDT) COLOGUARD RESULT Positive( A) Negative [employer] (CLIA #:[id number]) Comment: POSITIVE TEST RESULT. A positive Cologuard result should be followed with a colonoscopy or visual examination of the colon. The normal value (reference range) for this assay is negative. TEST DESCRIPTION: Composite algorithmic analysis of stool DNA-biomarkers with hemoglobin immunoassay. Quantitative values of individual biomarkers are not reportable and are not associated with individual biomarker result reference ranges. Cologuard is intended for colorectal cancer screening of adults of either sex, 45 years or older, who are at average-risk for colorectal cancer (CRC). Cologuard has been approved for use by the U.S. FDA. The performance of Cologuard was established in a cross sectional study of average-risk adults aged 50-84. Cologuard performance in patients ages 45 to 49 years was estimated by sub-group analysis of near-age groups. Colonoscopies performed for a positive result may find as the most clinically significant lesion: colorectal cancer [4.0%], advanced adenoma (including sessile serrated polyps greater than or equal to 1cm diameter) [20%] or non- advanced adenoma [31%]; or no colorectal neoplasia [45%]. These estimates are derived from a prospective cross-sectional screening study of 10,000 individuals at average risk for colorectal cancer who were screened with both Cologuard and colonoscopy. (Niharika Orellana et al, N Engl J Med 2014;370(14):5733-2705.) Cologuard may produce a false negative or false positive result (no colorectal cancer or precancerous polyp present at colonoscopy follow up). A negative Cologuard test result does not guarantee the absence of CRC or advanced adenoma (pre-cancer). The current Cologuard screening interval is every 3 years. ([place] Cancer Society and U.S. Multi-Society Task Force). Cologuard performance data in a 10,000 patient pivotal study using colonoscopy as the reference method can be accessed at the following location: www.digitalbox.[employer]/results. Additional description of the Cologuard test process, warnings and precautions can be found at www.[email or web address].com. STOOL STOOL SPECIMEN / Unknown 12/26/2022 9:06 PM CDT 12/28/2022 3:49 PM CDT us Nidia Ledesma SIGNAL PERSON BODY FLUIDS AND STOOLS ORDERAB LES Final Result [facility] [address] [place] [address], [employer] (CLIA #:[id number]) [address] [place] [address] from Last 3 Months or Most Recently Relevant to Health Maintenance Insurance MEDICAID Care Teams Ticket Sales Agent Relationship Specialty Start Date End Date Nidia Ledesma FNP [address] [place] [id number] PCP - General Nurse Practitioner Family 08/13/18
--- OUTSIDE RECORDS SUMMARY | 2024-11-10 12:38 | XMS_ITS ---
Author Organization [facility] Address [address] [place] [address] Care Team Providers Care Yarn Dry Room Worker Name Role Phone Loren Li Primary Care Provider [phone] Reggie Valerio Unavailable [phone] [facility], [facility] Unavailable U Yesi Ribeiro Unavailable [phone] REASON FOR VISIT Labs-fasting Social History Sex Assigned At : Social History Observation Description Sex Assigned At Male Encounters Encounter Location Date Provider Diagnosis [facility] [address] [place] [address] 11/04/2024 Yesi Dash Plan Of Treatment No Information Progress Notes * Kamran SCHERERDOB: [birth year] (54 yo M)Acc No.[id number]:11/04/2024 UNLOCKED PROGRESS NOTE Patient: Kamran PEREZ Provider: Shandra Dash APRN :1970 A ge:54 Y S ex:Male Date:11/04/2024 Address:[address] [place], [place] [id number] Pcp:Loren Li Subjective: * Chief Complaints: * 1 . Labs-fasting. * Medical History: Objective: * Vitals: Assessment: Plan: * Treatment: * * Electronic signature of Pretty Dash , [id number] on 11/10/2024 at 12:37 PM CDT Sign off status: Pending * Provider: Shandra Dash APRN Date: 0 11/04/2024 Generated for Rayray lazo/Emilie/Watsons[place] on: 0 11/10/2024 12:37 PM CDT
== END 2024-11-10 10:49 | disposition home or self-care (01) ==
PROVIDERS: PCP Family Medicine; Visit Provider Nurse Practitioner Adult Health
DX: R60.0 Localized edema (principal); M20.11 Hallux valgus (acquired), right foot
CPT/HCPCS: 73620